=== PATIENT | male | born 1975 | race Caucasian/White ===

== ENCOUNTER 2016-08-05 13:03 | Emergency (ER) | payer OTHER ==
[2016-08-05 13:51] LABS: BILIRUBIN NEGATIVE (NEGATIVE); BLOOD 1+ Ery/uL (NEGATIVE); CLARITY CLEAR (CLEAR); COLOR YELLOW (YELLOW); GLUCOSE (U) NORMAL (NORMAL); KETONE (U) NEGATIVE (NEGATIVE); LEUKOCYTES NEGATIVE Leu/uL (NEGATIVE); NITRITE NEGATIVE (NEGATIVE); PROTEIN NEGATIVE (NEGATIVE); SPECIFIC GRAVITY <=1.005 (1.001-1.030); UROBILINOGEN 0.2 mg/dL (0.2-1.0)
[2016-08-05 14:11] LABS: BACTERIA TRACE; SQUAMOUS EPITHELIAL CELLS RARE; URINARY WBC RARE
[2016-08-05 20:12] LABS: BASOPHIL 0.5 % (0-2); EOSINOPHIL 0 % (0-5); HCT 38.6 % (42.0-52.0); HGB 13.9 g/dl (13.2-18.0); MCH 31.3 pg (25.0-31.0); MCV 86.9 fL (78.0-100.0); MONOCYTE 10.2 % (0-12); MPV 9.7 fL (6.0-9.5); NEUTROPHIL 67.3 % (41-80); PLT 136 K/uL (150-400); RBC 4.44 M/uL (4.70-6.00); RDW 13.1 % (11.5-14.0); WBC 4.2 K/uL (4.0-10.5)
[2016-08-05 20:29] LABS: ALBUMIN 3.6 g/dL (3.5-5.0); BILIRUBIN - TOTAL 0.4 mg/dL (0.1-1.0); GLOBULIN (CALCULATION) 2.6 g/dL (2.2-4.2); POTASSIUM 3.6 mmol/L (3.5-5.1); TOTAL PROTEIN 6.2 g/dL (6.4-8.3)
== END 2016-08-05 21:15 | disposition home or self-care (01) ==
LOC: FER 13:03
PROVIDERS: Emergency Medicine; Physician Assistant
DX: J20.9 Acute bronchitis, unspecified (principal); R19.7 Diarrhea, unspecified; F17.210 Nicotine dependence, cigarettes, uncomplicated
CPT/HCPCS: 36415; 71020; 80053; 81001; 85025; 87804; 87899; 94640; J1885; J2930

== ENCOUNTER 2021-07-13 12:18 | Emergency (ER) | payer OTHER ==
[2021-07-13 12:49] LABS: BASOPHIL 1.1 % (0-2); EOSINOPHIL 2.9 % (0-5); HCT 44.2 % (42.0-52.0); HGB 15.1 g/dl (13.2-18.0); LYMPHOCYTE 45.7 % (15-48); MCH 31.1 pg (25.0-31.0); MCHC 34.2 g/dL (32.0-36.0); MCV 90.9 fL (78.0-100.0); MONOCYTE 8.7 % (0-12); MPV 9.7 fL (6.0-9.5); NEUTROPHIL 41.3 % (41-80); NRBC 0; PLT 229 K/uL (150-400); RBC 4.86 M/uL (4.70-6.00); RDW 12.7 % (11.5-14.0); WBC 7.3 K/uL (4.0-10.5)
[2021-07-13 12:56] LABS: INR 0.94 (0.9-1.2); PTT 27.7 SECONDS (24.4-34.7)
[2021-07-13 13:09] LABS: ALBUMIN 3.8 g/dL (3.4-5.0); BILIRUBIN - TOTAL 0.5 mg/dL (0.2-1.0); BUN/CREAT RATIO (CALC) 14.3 RATIO; CREATININE 1.26 mg/dL (0.67-1.17); GLOBULIN (CALCULATION) 3.2 g/dL; POTASSIUM 3.7 mmol/L (3.5-5.1)
== END 2021-07-13 20:30 | disposition other institution (70) ==
LOC: FER 12:18
PROVIDERS: Emergency Medicine
DX: I20.8 Other forms of angina pectoris (principal); I21.4 Non-ST elevation (NSTEMI) myocardial infarction; F17.210 Nicotine dependence, cigarettes, uncomplicated; Z20.822 Contact with and (suspected) exposure to COVID-19
CPT/HCPCS: 36415; 71045; 80053; 84484; 85025; 85610; 85730; 93005; J1644; U0002